=== PATIENT | female | born 1975 | race Caucasian/White ===

== ENCOUNTER 2016-09-16 04:34 | Emergency (ER) | payer BC, OTHER ==
[~2016-09-16] VITALS: Ht 162.6 cm; Wt 99.0 kg
[~2016-09-16 04:34] MED LIST: ALBU1AER9 INH; ATOR-24 PO; CETI10TA84 PO; CITA40TA4 PO; EPP3/2 IM; GLC/500 PO; MULT-506 PO
[2016-09-16 04:35] VITALS: TEMP 36.4; Ht 162.6 cm; Wt 99.0 kg
[2016-09-16] MEDS ORDERED: TPM25 PO (05:58)
[2016-09-16 06:07] VITALS: BP 125/84; PULSE 71; O2SAT 97
--- NOTE | 2016-09-16 08:20 | DIAGNOSTIC IMAGING REPORT ---
LEFT ANKLE MIN 3 VIEWS ROUTINE, LEFT FOOT MIN 3 VIEWS ROUTINE CLINICAL HISTORY: left foot/ankle injury COMPARISON STUDY: None. FINDINGS: Plantar and posterior calcaneal spurs. No fracture or dislocation. Soft tissues unremarkable. The Lisfranc joint and ankle mortise are maintained. IMPRESSION: No fracture or dislocation within the left ankle or left foot. Electronically signed by: Julio Connell M.D. 09/16/2016 8:19 AM Dictated Date/Time: 09/16/2016 8:16 AM
--- NOTE | 2016-09-17 03:22 | EMERGENCY ROOM VISIT NOTE ---
History First contact with patient: 04:40 Chief Complaint: FOOT PAIN Stated Complaint: EPI PEN STUCK IN RT FOOT,RT FOOT INJURY-WORK History of Present Illness The patient is a 40 year old female who presents to the Emergency Room with complaints of right ankle injury and foreign body of her left foot. 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 The patient has been having persistent pain in the superior aspect of the left foot and the lateral aspect of the left ankle. The patient has been able to ambulate despite her injury. On her way to work this morning she stopped in the emergency department parking lot, and was considering checking into the ER due to her symptoms. The patient reports that she has allergies to several foods, and felt like she might be reacting to something that she had eaten yesterday. The patient decided to take out her EpiPen, however it was dark outside, and she dropped it. The patient was not wearing a shoe on her left foot because of her foot pain, and used her foot to identify the location of the EpiPen. When she found the EpiPen she presses against the side of the door, causing it to discharge into her foot. The patient is now unable to remove the EpiPen from her foot, as it appears the needle is now stuck. The patient rates her overall discomfort a 9/10. She has full sensation of her foot. She is without additional complaints. Her tetanus is reportedly up-to-date Review of Systems More than 10 systems were reviewed and otherwise negative with the exception of history of present illness. Past Medical/Surgical History Medical Problems: (1) Asthma, Unspecified (2) Chronic Cholecystitis (3) Pure Hypercholesterolem Family History No significant family history Social History Smoking Status: Never Smoker Drug Use: none Occupation Status: employed Current/Historical Medications Scheduled Atorvastatin (Lipitor), 40 MG PO HS Cetirizine (Zyrtec), 10 MG PO QAM Citalopram (Citalopram Hydrobromide), 40 MG PO QAM Metformin Hcl (Glucophage), 500 MG PO BIDM Multivitamin (Multivitamin), 1 TAB PO QAM Topiramate (Topiramate), 25 MG PO BID Scheduled PRN Epinephrine (Epipen), 0.3 MG IM UD PRN for ALLERGIC REACTION Allergies Coded Allergies: Prednisone (Verified Allergy, Intermediate, RASH, 4/3/17) Amitriptyline (Verified Allergy, Unknown, ? HIVES AND RASH, 09/16/16) Iodinated Diagnostic Agents (Verified Allergy, Unknown, SHORTNESS OF BREATH, 09/16/16) Rofecoxib (Verified Allergy, Unknown, 09/16/16) Shellfish (Verified Allergy, Unknown, ANAPHYLAXIS, 09/16/16) Sumatriptan (Verified Allergy, Unknown, LOCK JAW, 09/16/16) Morphine (Verified Adverse Reaction, Intermediate, SEVERE NAUSEA, 09/16/16) Physical Exam Vital Signs Date Time Temp Pulse Resp B/P Pulse Ox O2 Delivery O2 Flow Rate FiO2 09/16/16 06:07 71 18 125/84 97 Room Air 09/16/16 04:35 36.4 90 20 152/102 97 Room Air Pain Rating (0-10): 2.0 Physical Exam VITALS: Vitals are noted on the nurse's note and reviewed by myself. Vital signs stable. GENERAL: Well-developed, well-nourished, white female who is in moderate discomfort secondary to her stated complaint. HEAD: Normocephalic atraumatic. HEART: Regular rate and rhythm without murmurs gallops or rubs. LUNGS: Clear to auscultation bilaterally without wheezes, rales or rhonchi. No retractions or accessory muscle use. MUSCULOSKELETAL: The foot is with foreign body underneath the first MTP joint on the plantar aspect. This is an EpiPen that appears to have discharged and the needle is now stuck in the soft tissue. The foot is with full neurovascular status. Pulses are intact throughout. There is no significant bleed. There is mild tenderness over the left lateral malleolus with slight palpable edema. No anterior mortise tenderness. No tenderness of the superior aspect of the foot. Patient has full sensation and range of motion of the toes. NEURO: Patient was alert and oriented to person place and time. CN II through XII grossly intact. Medical Decision & Procedures ER Provider Diagnostic Interpretation: LEFT ANKLE MIN 3 VIEWS ROUTINE, LEFT FOOT MIN 3 VIEWS ROUTINE CLINICAL HISTORY: left foot/ankle injury COMPARISON STUDY: None. FINDINGS: Plantar and posterior calcaneal spurs. No fracture or dislocation. Soft tissues unremarkable. The Lisfranc joint and ankle mortise are maintained. IMPRESSION: No fracture or dislocation within the left ankle or left foot. ED Course Physical exam and history were performed. Nursing notes and EMR were reviewed. Patient appears to have ankle pain from an injury yesterday as well as foreign body of her foot. Utilizing forceps I was able to manipulate the EpiPen from her foot without complication. The end of the needle appears to have a pigtail shape, presumably from hitting bone at the time of discharge. This is likely what caused the EpiPen to remain as a foreign body. X-rays were obtained of the foot and ankle and do not show evidence of acute fracture, dislocation, or foreign body. I discussed options for care with the patient. She has a preference to go home , and this appears reasonable provided that she have close follow-up regarding her foot. She did inject epinephrine into her foot accidentally. She did not strike the toes, and over the course of about 90 minutes did not have any worsening of her discomfort. She did feel better after removal of the EpiPen. She does not appear to have any necrotic tissue or vascular compromise. The patient should have a recheck in a few hours of her foot. I recommend that she follow closely with her primary care physician or return to the ER for this. The patient should otherwise follow with Workmen's Compensation regarding her injury from work. She was otherwise invited back to the ER with any new, worsening, or concerning symptoms. The chart was completed utilizing [employer] Speech Voice Recognition Software. Grammatical errors, random word insertions, pronoun errors, and incomplete sentences are an occasional consequence of this system due to software limitations, ambient noise, and hardware issues. Any formal questions or concerns about the content, text, or information contained within the body of this dictation should be directly addressed to the provider for clarification. . Medical Decision Differential diagnosis includes, but is not limited to: Sprain, strain, fracture , dislocation, subluxation, contusion, foreign-body, epinephrine injection, and others Impression Primary Impression: Left ankle pain Additional Impressions: Accidental injection of epinephrine Puncture wound of left foot without foreign body Departure Information Dispostion Home / Self-Care Condition GOOD Forms HOME CARE DOCUMENTATION FORM, IMPORTANT VISIT INFORMATION Patient Instructions [facility] Additional Instructions You were seen and evaluated today on an emergency basis only. This is not a substitute for, or an effort to provide, complete comprehensive medical care. It is not possible to recognize and treat all injuries or illnesses in a single emergency department visit. For this reason it is recommended that you followup with Workmen's Compensation this week regarding your ankle injury. We recommend following up later today with your primary care physician for reevaluation of your left foot after the injection of epinephrine. If you are not able to be seen today by your primary care physician we recommend return to the ER. You are welcome to return to the emergency department anytime with new, worsening, or concerning symptoms. Problem Qualifiers
== END 2016-09-16 06:10 | disposition home or self-care (01) ==
LOC: C.EDB 04:35 → C.EDA 06:10
DX: S91.332A Puncture wound without foreign body, left foot, initial encounter (principal); X58.XXXA Exposure to other specified factors, initial encounter; T44.5X1A Poisoning by predominantly beta-adrenoreceptor agonists, accidental (unintentional), initial encounter; M25.572 Pain in left ankle and joints of left foot; E78.00 Pure hypercholesterolemia, unspecified; J45.909 Unspecified asthma, uncomplicated; Z79.84 Long term (current) use of oral hypoglycemic drugs; Z79.899 Other long term (current) drug therapy; Z88.5 Allergy status to narcotic agent; Z88.8 Allergy status to other drugs, medicaments and biological substances; Z91.018 Allergy to other foods; Z91.041 Radiographic dye allergy status

== ENCOUNTER 2016-10-17 10:44 | Inpatient (IN) | payer BC, OTHER ==
[~2016-10-17] VITALS: Ht 162.6 cm; Wt 100.7 kg
[~2016-10-17 10:44] MED LIST changes: -ALBU1AER9 INH; +TPM25 PO
[2016-10-17] MEDS ORDERED: BUSP-8 PO (11:42)
[2016-10-17 12:20] LABS: HEMATOCRIT 42.7 % (37-47); MEAN CELL VOLUME 90.9 fL (80-100); MEAN CORPUSCULAR HEMOGLOBIN 30.4 pg (25-34); MEAN CORPUSCULAR HGB CONC 33.5 g/dl (32-36); MEAN PLATELET VOLUME 10.3 fL (7.4-10.4); PLATELET COUNT 206 K/uL (130-400); WHITE BLOOD COUNT 6.65 K/uL (4.8-10.8)
[2016-10-17 12:42] LABS: ALT/SGPT 68 U/L (12-78); BLOOD UREA NITROGEN 20 mg/dl (7-18); BUN/CREATININE RATIO 23.8 (10-20); CARBON DIOXIDE 27 mmol/L (21-32); CHLORIDE 105 mmol/L (98-107); CREATININE 0.84 mg/dl (0.60-1.20); GLUCOSE 90 mg/dl (70-99); POTASSIUM 4.2 mmol/L (3.5-5.1); SODIUM 140 mmol/L (136-145)
[2016-10-17 12:49] LABS: ACETAMINOPHEN < 2 ug/ml (10-30)
[2016-10-17 12:52] LABS: ALKALINE PHOSPHATASE 86 U/L (45-117); AST/SGOT 27 U/L (15-37)
[2016-10-17 13:00] LABS: BENZODIAZEPINE, URINE NEG (NEG); COCAINE,URINE NEG (NEG); PHENCYCLIDINE, URINE NEG (NEG)
[2016-10-17 13:31] LABS: CALCIUM 9.3 mg/dl (8.5-10.1)
[2016-10-17] MEDS ORDERED: MAGN400T6 PO (13:34)
[2016-10-17 14:28] VITALS: O2SAT 98
[2016-10-17] MEDS ORDERED: hydrOXYzine HCL 25 MG TAB PO PRN (14:45)
[2016-10-17] MEDS ORDERED: BISMUTH SUBSALICYLATE PER ML OMNICELL CHARGE PO PRN (14:45)
[2016-10-17] MEDS ORDERED: SODIUM CHLORIDE 0.65% NA SOLN 45 ML (OCEAN) PRN (14:45)
[2016-10-17] MEDS ORDERED: MAGNESIUM HYDROXIDE SUSP 30 ML UDC PO PRN (14:45)
[2016-10-17] MEDS ORDERED: ALUMINUM/MAGNESIUM SUSP 30 ML UDC PO PRN (14:45)
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
[2016-10-17 15:53] VITALS: BP 130/78; PULSE 74; TEMP 36.7; BMI 38.1
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
[2016-10-17] MEDS: METFORMIN HCL 500 MG TAB PO SCH (17:29)
[2016-10-17] MEDS: ACETAMINOPHEN 325 MG TAB PO PRN (19:05)
[2016-10-17] MEDS: TOPIRAMATE 25 MG TAB PO SCH (21:14)
[2016-10-18] MEDS: ACETAMINOPHEN 325 MG TAB PO PRN (07:01)
[2016-10-18 07:08] VITALS: BP_SYST 103; BP_SYST 118; BP_DIAS 71; BP_DIAS 81; PULSE 69; PULSE 84; TEMP 36.5
[2016-10-18 07:13] VITALS: Ht 162.6 cm; Wt 100.7 kg
[2016-10-18] MEDS: MAGNESIUM OXIDE 400 MG TAB PO SCH (08:57)
[2016-10-18] MEDS: TOPIRAMATE 25 MG TAB PO SCH ×2 (08:58→21:32)
[2016-10-18] MEDS: MULTIVITAMIN TAB PO SCH (08:58)
[2016-10-18] MEDS: CETIRIZINE HCL 10 MG TAB PO SCH (08:58)
[2016-10-18] MEDS: METFORMIN HCL 500 MG TAB PO SCH ×2 (08:58→17:22)
[2016-10-18] MEDS ORDERED: SERTRALINE HCL 50 MG TAB PO SCH (09:00)
[2016-10-18] MEDS ORDERED: CITALOPRAM 20 MG TAB PO SCH (09:00)
[2016-10-18 09:48] VITALS: BP 139/82; PULSE 80
[2016-10-18] MEDS ORDERED: NURSING VERBAL MED ORDER ONE (10:00)
[2016-10-18] MEDS ORDERED: LORAZEPAM 1 MG TAB PO ONE (10:30)
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
[2016-10-19 07:04] VITALS: BP 128/82; PULSE 76; PULSE 88; TEMP 36.8
[2016-10-19] MEDS: METFORMIN HCL 500 MG TAB PO SCH ×2 (08:06→17:22)
[2016-10-19] MEDS: TOPIRAMATE 25 MG TAB PO SCH ×2 (08:06→21:37)
[2016-10-19] MEDS: CETIRIZINE HCL 10 MG TAB PO SCH (08:06)
[2016-10-19] MEDS: MULTIVITAMIN TAB PO SCH (08:06)
[2016-10-19] MEDS: MAGNESIUM OXIDE 400 MG TAB PO SCH (08:06)
[2016-10-19] MEDS: ACETAMINOPHEN 325 MG TAB PO PRN ×2 (08:07→17:42)
[2016-10-19] MEDS ORDERED: SERTRALINE HCL 100 MG TAB PO SCH (09:00)
--- NOTE | 2016-10-19 09:57 | Psych Management Progress Note ---
Psychiatry Miscellaneous Date of Service: October 19, 2016. Patient seen, MS assessed. Did not participate in community meeting. Appears tired, told staff she wasn't feeling well but denies specific complaints at this time. Will review care and treatment plan outlined by LEONIDAS.
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
[2016-10-19] MEDS: hydrOXYzine HCL 25 MG TAB PO PRN (20:48)
[2016-10-20 06:54] VITALS: BP_SYST 120; BP_SYST 121; BP_DIAS 80; BP_DIAS 81; PULSE 68; PULSE 83; TEMP 36.6
[2016-10-20] MEDS: METFORMIN HCL 500 MG TAB PO SCH ×2 (08:54→17:45)
[2016-10-20] MEDS: MAGNESIUM OXIDE 400 MG TAB PO SCH (08:54)
[2016-10-20] MEDS: MULTIVITAMIN TAB PO SCH (08:55)
[2016-10-20] MEDS: TOPIRAMATE 25 MG TAB PO SCH ×2 (08:55→21:10)
[2016-10-20] MEDS: CETIRIZINE HCL 10 MG TAB PO SCH (08:55)
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
[2016-10-20 10:41] VITALS: BP 108/74; PULSE 76
[2016-10-20] MEDS: ACETAMINOPHEN 325 MG TAB PO PRN (10:43)
[2016-10-20] MEDS ORDERED: SERTRALINE HCL 100 MG TAB PO SCH (22:00)
[2016-10-21 07:01] VITALS: BP_SYST 117; BP_SYST 126; BP_DIAS 81; BP_DIAS 84; PULSE 71; PULSE 84; TEMP 36.5
[2016-10-21] MEDS: MAGNESIUM OXIDE 400 MG TAB PO SCH (08:47)
[2016-10-21] MEDS: MULTIVITAMIN TAB PO SCH (08:47)
[2016-10-21] MEDS: METFORMIN HCL 500 MG TAB PO SCH (08:47)
[2016-10-21] MEDS: TOPIRAMATE 25 MG TAB PO SCH (08:47)
[2016-10-21] MEDS: CETIRIZINE HCL 10 MG TAB PO SCH (08:47)
[2016-10-21] MEDS ORDERED: SERT1TAB92 PO (10:49)
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
[2016-10-21] MEDS: hydrOXYzine HCL 25 MG TAB PO PRN (11:37)
== END 2016-10-21 14:10 | disposition home or self-care (01) | DRG 885 ==
LOC: C.EDB 10:47 → C.MHU 14:43
PROVIDERS: ADMIT Psychiatry & Neurology Child & Adolescent Psychiatry; ATTEND Psychiatry & Neurology Child & Adolescent Psychiatry
DX: F32.2 Major depressive disorder, single episode, severe without psychotic features (principal); R45.851 Suicidal ideations; G43.009 Migraine without aura, not intractable, without status migrainosus; F41.9 Anxiety disorder, unspecified; E66.9 Obesity, unspecified; J45.909 Unspecified asthma, uncomplicated; E88.81 Metabolic syndrome and other insulin resistance; Z68.38 Body mass index [BMI] 38.0-38.9, adult; Z79.899 Other long term (current) drug therapy; Z79.84 Long term (current) use of oral hypoglycemic drugs

== ENCOUNTER 2016-11-05 13:40 | Inpatient (IN) | payer BC, OTHER ==
[~2016-11-05] VITALS: Ht 162.6 cm; Wt 97.9 kg
[2016-11-05] VITALS (10 sets, daily range): BP systolic 102–149; BP diastolic 57–98; PULSE 76–89; TEMP 36.3–36.5; O2SAT 97–100; Ht 162.6 cm; Wt 97.9 kg
[~2016-11-05 13:40] MED LIST changes: -ATOR-24 PO; +BUSP-8 PO; -CITA40TA4 PO; +MAGN400T6 PO; +SERT1TAB92 PO
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
[2016-11-05 14:41] LABS: BASO % 0.4 %; BASO ABS # 0.02 K/uL (0-0.2); COMPLETE YES; EOS % 2.8 %; HEMATOCRIT 41.1 % (37-47); IG% 0.4 %; LYMPH % 31.9 %; MEAN CELL VOLUME 90.5 fL (80-100); MEAN CORPUSCULAR HEMOGLOBIN 29.3 pg (25-34); MEAN CORPUSCULAR HGB CONC 32.4 g/dl (32-36); MONO % 4.4 %; NEUT % 60.1 %; PLATELET COUNT 207 K/uL (130-400); RED BLOOD COUNT 4.54 M/uL (4.2-5.4); WHITE BLOOD COUNT 5.65 K/uL (4.8-10.8)
[2016-11-05 14:44] LABS: BLOOD UREA NITROGEN 11 mg/dl (7-18); CALCIUM 8.7 mg/dl (8.5-10.1); CARBON DIOXIDE 27 mmol/L (21-32); CHLORIDE 110 mmol/L (98-107); GLUCOSE 92 mg/dl (70-99); POTASSIUM 3.6 mmol/L (3.5-5.1); SODIUM 144 mmol/L (136-145)
[2016-11-05 15:04] LABS: ACETAMINOPHEN < 2 ug/ml (10-30)
[2016-11-05 15:09] LABS: ALKALINE PHOSPHATASE 89 U/L (45-117); ALT/SGPT 104 U/L (12-78); AST/SGOT 48 U/L (15-37); BUN/CREATININE RATIO 12.3 (10-20); CREATININE 0.88 mg/dl (0.60-1.20)
[2016-11-05] MEDS ORDERED: LPT40 PO (15:31)
[2016-11-05] MEDS ORDERED: KLN5X PO (15:31)
[2016-11-05] MEDS ORDERED: CITA40TA4 PO (15:31)
[2016-11-05] MEDS ORDERED: BUPR100T8 PO (15:31)
[2016-11-05] MEDS ORDERED: PRZ1 PO (15:31)
[2016-11-05] MEDS ORDERED: CLMTP5 PO (15:31)
[2016-11-05 15:36] LABS: PREG INTERNAL NEGATIVE QC NEG CLEAR BACKGROUND; PREG INTERNAL POSITIVE QC POS CONTROL LINE
[2016-11-05 16:01] LABS: BENZODIAZEPINE, URINE NEG (NEG); COCAINE,URINE NEG (NEG); PHENCYCLIDINE, URINE NEG (NEG)
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
[2016-11-05] MEDS ORDERED: MRLP17X PO (16:25)
[2016-11-05] MEDS ORDERED: DICY20TA35 PO (16:25)
[2016-11-05] MEDS ORDERED: ONDA4TAB46 PO (16:25)
[2016-11-05] MEDS ORDERED: MECL-91 PO (16:25)
[2016-11-05] MEDS ORDERED: PRVHFAIN INH (16:25)
[2016-11-05] MEDS ORDERED: TOPI25TA55 PO (16:25)
[2016-11-05] MEDS ORDERED: MULTTAB58 PO (16:25)
[2016-11-05] MEDS ORDERED: RIBOCAP PO (16:25)
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
--- NOTE | 2016-11-05 18:10 | EMERGENCY ROOM VISIT NOTE ---
ED Visit Note First contact with patient: 13:38 Resident Physician Supervision Note: I interviewed and examined the patient. Discussed with Dr. Driscoll and agree with findings and plan as documented in the note. I spoke with this patient independently and she admits to taking an overdose of her meds. She was quite sleepy on physical exam although she was protecting her airway normally. The patient remains hemolytically stable. She will be admitted to the ICU is a polysubstance overdose. She will certainly require inpatient psychiatric care following this medical admission. Documented By: Thao Walker
[2016-11-05 18:21] LABS: PROTHROMBIN TIME (PATIENT) 10.7 SECONDS (9.0-12.0)
[2016-11-05] MEDS ORDERED: MAGNESIUM SULFATE 1GM / D5W 1 GM in PREMIXED IN D5W 100 ML IV SCH (18:30)
[2016-11-05 18:38] LABS: CALCIUM 8.6 mg/dl (8.5-10.1); CREATININE 0.81 mg/dl (0.60-1.20); MAGNESIUM 2.7 mg/dl (1.8-2.4); POTASSIUM 3.6 mmol/L (3.5-5.1)
[2016-11-05 18:47] LABS: ALB/GLOB RATIO 1.3 (0.9-2); PHOSPHORUS 3.6 mg/dl (2.5-4.9)
[2016-11-05 19:02] LABS: VEN BLD GAS O2 SATURATION 91.6 %; VEN BLOOD GAS BASE EXCESS -2.7 mmol/L
--- NOTE | 2016-11-05 20:15 | Progress Note ---
Progress Note Date of Service November 05, 2016. Progress Note 20:10 Discussed the case with LEONID[facility] Psychiatry, who provided instructions on how to address issues overnight if patient were to leave. If patients makes attempt to leave without medical clearance, [facility] Arrangements can be made with security services to try and have patient remain in hospital until the warrant is issued. Call psych liaison nurse with any questions. Once medically cleared, patient will be assessed and evaluated for mental health admission. Psychiatry/Mental health will come to assess patient in the morning.
[2016-11-05] MEDS: SODIUM CHLOR 0.45% + 20MEQ KCL 1,000 ML IV SCH (20:29)
[2016-11-05] MEDS: ENOXAPARIN 40 MG/0.4 ML SYR SQ SCH (20:30)
[2016-11-06] VITALS (12 sets, daily range): BP systolic 105–135; BP diastolic 64–95; PULSE 80–95; TEMP 36.5–36.9; O2SAT 94–98
[2016-11-06] MEDS: SODIUM CHLOR 0.45% + 20MEQ KCL 1,000 ML IV SCH (04:57)
[2016-11-06 06:01] LABS: BASO % 0.3 %; BASO ABS # 0.02 K/uL (0-0.2); COMPLETE YES; EOS % 1.8 %; HEMATOCRIT 40.7 % (37-47); IG% 0.3 %; LYMPH % 20.8 %; LYMPH ABS # 1.24 K/uL (1.2-3.4); MEAN CELL VOLUME 91.9 fL (80-100); MEAN CORPUSCULAR HEMOGLOBIN 29.6 pg (25-34); MEAN CORPUSCULAR HGB CONC 32.2 g/dl (32-36); MEAN PLATELET VOLUME 9.6 fL (7.4-10.4); MONO % 4.7 %; NEUT % 72.1 %; PLATELET COUNT 205 K/uL (130-400); RED BLOOD COUNT 4.43 M/uL (4.2-5.4); WHITE BLOOD COUNT 5.96 K/uL (4.8-10.8)
[2016-11-06 06:40] LABS: ALB/GLOB RATIO 1.2 (0.9-2); BUN/CREATININE RATIO 11.6 (10-20); CALCIUM 8.3 mg/dl (8.5-10.1); CREATININE 0.87 mg/dl (0.60-1.20); MAGNESIUM 2.3 mg/dl (1.8-2.4)
[2016-11-06 06:41] LABS: PHOSPHORUS 3.2 mg/dl (2.5-4.9)
[2016-11-06 07:24] LABS: VEN BLD GAS O2 SATURATION 79.6 %; VEN BLOOD GAS BASE EXCESS -4.5 mmol/L
[2016-11-06] MEDS ORDERED: PANTOprazole INJ 40 MG in SYRINGE 0 ML IV SCH (09:00)
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
--- NOTE | 2016-11-06 17:43 | Progress Note ---
Internal Med Progress Note Date of Service: November 06, 2016. Provider Documentation: SUBJECTIVE: patient is alert and awake says she heard bad news and wanted to be numb and took extra medications currently saying having headache and having vision problem no chest pain or sob or nausea afebrile hemodynamics stable OBJECTIVE: Vital Signs-as noted below Exam: General-alert and awake and oriented x 3 ENT-normal hearing Neck-no neck masses Lungs-cta b/l no wheezing or crackles Heart-s1 and s2 heard regular rate and rhythm no murmurs Abdomen-soft bowel sounds present non tender no distension Extremities- no edema present no erythema Neuro-alert and awake oriented x 3 moves extremities Lab data as noted below. ASSESSMENT & PLAN: MULTIPLE DRUG OVERDOSE intentional? hx of sucide atempt hemodynamics stable Qt prolongation improving iv fluids close monitor DEPRESSION seen by psychiatry ok to hod home meds for now plan for inpatient mental health unit when medically stable patient cannot sign out AMA INSULIN RESISTANCE Hold metformin during hospitalization On iss will monitor. ASTHMA stable HX DVT / VTE PROPHYLAXIS Lovenox SQ FULL CODE DISPOSITION monitor in ICU for now Vital Signs: Date Time Temp Pulse Resp B/P Pulse Ox O2 Delivery O2 Flow Rate FiO2 11/06/16 16:00 36.6 80 16 128/89 96 Room Air 11/06/16 16:00 96 Room Air 11/06/16 14:00 36.6 16 135/95 94 Room Air 11/06/16 12:00 36.8 18 120/65 95 Room Air 11/06/16 12:00 Room Air 11/06/16 10:01 36.7 95 17 105/64 95 Room Air 11/06/16 08:00 Room Air 11/06/16 07:45 95 Room Air 11/06/16 07:45 36.7 95 17 128/68 95 Room Air 11/06/16 06:00 82 17 111/70 95 11/06/16 04:01 36.8 82 14 115/72 94 11/06/16 04:00 Room Air 11/06/16 02:00 87 17 125/67 98 11/06/16 00:01 36.9 89 13 130/83 98 11/06/16 00:01 36.5 89 13 130/83 98 Nasal Cannula 2.0 11/05/16 23:59 Nasal Cannula 2.0 11/05/16 22:00 88 13 102/60 98 11/05/16 21:00 83 19 114/57 98 11/05/16 20:00 76 25 102/81 100 11/05/16 20:00 Nasal Cannula 2.0 11/05/16 19:00 36.5 81 23 121/73 100 Nasal Cannula 2.0 11/05/16 18:04 89 24 119/87 97 11/05/16 18:00 87 24 98 Nasal Cannula 2.0 Lab Results: Results Past 24 Hours Test 11/05/16 17:53 11/05/16 18:41 11/05/16 23:23 11/06/16 05:49 Range/Units Prothrombin Time 10.7 9.0-12.0 SECONDS Prothromb Time International Ratio 1.0 0.9-1.1 Activated Partial Thromboplast Time 27.1 21.0-31.0 SECONDS Partial Thromboplastin Ratio 1.0 Sodium Level 145 143 136-145 mmol/L Potassium Level 3.6 4.0 3.5-5.1 mmol/L Chloride Level 112 112 98-107 mmol/L Carbon Dioxide Level 27 25 21-32 mmol/L Anion Gap 6.0 6.0 3-11 mmol/L Blood Urea Nitrogen 11 10 7-18 mg/dl Creatinine 0.81 0.87 0.60-1.20 mg/dl Est Creatinine Clear Calc Drug Dose 101.8 94.8 ml/min Estimated GFR () 103.1 94.6 Estimated GFR (Non- 89.0 81.6 BUN/Creatinine Ratio 13.0 11.6 10-20 Random Glucose 96 96 70-99 mg/dl Osmolality 290 280-300 mOsm/kg Lactic Acid Level 1.2 0.4-2.0 mmol/L Calcium Level 8.6 8.3 8.5-10.1 mg/dl Phosphorus Level 3.6 3.2 2.5-4.9 mg/dl Magnesium Level 2.7 2.3 1.8-2.4 mg/dl Total Bilirubin 0.3 0.2 0.2-1 mg/dl Aspartate Amino Transf (AST/SGOT) 49 43 15-37 U/L Alanine Aminotransferase (ALT/SGPT) 102 102 12-78 U/L Alkaline Phosphatase 88 84 45-117 U/L Total Protein 6.9 6.9 6.4-8.2 gm/dl Albumin 3.9 3.7 3.4-5.0 gm/dl Globulin 3.0 3.2 2.5-4.0 gm/dl Albumin/Globulin Ratio 1.3 1.2 0.9-2 Venous Blood pH 7.30 7.36-7.41 Venous Blood Partial Pressure CO2 50 38.0-50.0 mmHg Venous Blood Partial Pressure O2 70 mmHg Venous Blood HCO3 24 mmol/L Venous Blood Oxygen Saturation 91.6 % Venous Blood Base Excess -2.7 mmol/L Bedside Glucose 97 70-90 mg/dl White Blood Count 5.96 4.8-10.8 K/uL Red Blood Count 4.43 4.2-5.4 M/uL Hemoglobin 13.1 12.0-16.0 g/dL Hematocrit 40.7 37-47 % Mean Corpuscular Volume 91.9 80-100 fL Mean Corpuscular Hemoglobin 29.6 25-34 pg Mean Corpuscular Hemoglobin Concent 32.2 32-36 g/dl Platelet Count 205 130-400 K/uL Mean Platelet Volume 9.6 7.4-10.4 fL Neutrophils (%) (Auto) 72.1 % Lymphocytes (%) (Auto) 20.8 % Monocytes (%) (Auto) 4.7 % Eosinophils (%) (Auto) 1.8 % Basophils (%) (Auto) 0.3 % Neutrophils # (Auto) 4.29 1.4-6.5 K/uL Lymphocytes # (Auto) 1.24 1.2-3.4 K/uL Monocytes # (Auto) 0.28 0.11-0.59 K/uL Eosinophils # (Auto) 0.11 0-0.5 K/uL Basophils # (Auto) 0.02 0-0.2 K/uL RDW Standard Deviation 47.6 36.4-46.3 fL RDW Coefficient of Variation 14.1 11.5-14.5 % Immature Granulocyte % (Auto) 0.3 % Immature Granulocyte # (Auto) 0.02 0.00-0.02 K/uL Test 11/06/16 07:10 11/06/16 08:55 Range/Units Venous Blood pH 7.34 7.36-7.41 Venous Blood Partial Pressure CO2 39 38.0-50.0 mmHg Venous Blood Partial Pressure O2 47 mmHg Venous Blood HCO3 21 mmol/L Venous Blood Oxygen Saturation 79.6 % Venous Blood Base Excess -4.5 mmol/L Hepatitis B Surface Antigen NEG NEG Hepatitis C Antibody NEG NEG
--- NOTE | 2016-11-06 18:59 | Critical Care Progress Note ---
Critical Care Progress Note Date of Service November 06, 2016. ICU Day ICU Day Number: [address] Dobson Subjective Patient states she does not recall any of the events of admission Recalls having a meeting with her boss about her filing a complaint for harassment against a co-worker and was notified that the complaint would not be investigated any further States that she was very upset by this and took 2 handfulls of medications. Was unable to specify which medications she took. Declines to answer whether she was intending to harm herself or commit suicide at the time. Declines to answer whether she has any remorse/regret of doing that. Denies any other complaints at this time. No issues overnight. Objective Constitutional: Vital signs as above were reviewed. Eyes: Pupils equal, round, and reactive to light. Extraocular muscles are intact. No proptosis. No photophobia. ENT: Mucous membranes are moist. Oropharynx is clear. No sinus tenderness. TMs are clear bilaterally. Cardiovascular: Heart with a regular rate and rhythm. Pulses are palpable and symmetric in all 4 extremities. No pedal edema appreciated. Respiratory: Lungs clear to auscultation bilaterally. No wheezes, rales, or rhonchi appreciated. No accessory muscle use. No retractions. No increased work of breathing. GI: Abdomen soft, nontender, nondistended. Normal active bowel sounds. No abdominal hernias appreciated. No rebound. No guarding. : No CVA tenderness appreciated. Musculoskeletal: No midline cervical or vertebral tenderness. No gross deformities. No bony tenderness. No calf swelling or tenderness. Integumentary: Warm, dry, no rashes appreciated. Neurological: Patient awake, alert, and oriented x 3. Cranial nerves two through 12 grossly intact. Motor 5 out of 5 strength bilateral upper and lower extremities. Lymph: No cervical lymphadenopathy appreciated. Psych: Depressed affect, slow monotonous, guarded with answering questions, tearful Current SOFA Score SOFA Score Response (Comments) Value Platelets (x10) > 150 0 Bilirubin (mg/dL) < 1.2 0 [place] Coma Score 15 0 Level of Hypotension No Hypotension 0 Creatinine (mg/dL) < 1.2 0 Total 0 Assessment & Plan (1) Antidepressant overdose (2) Drug overdose, multiple drugs (3) Migraine (4) Insulin resistance (5) At high risk for suicide NEUROLOGICAL - GCS: 14 - Sedation: None Sedated 2/2 to drug intoxication History of Depression - Continue to hold all home meds Attempted Suicide by Antidepressant Ingestion - Mental Health Consulted; recommendations appreciated - Patient has expressed desire to be voluntarily admitted for treatment once medically cleared CARDIOVASCULAR - Hemodynamically stable; Goal MAP > 65 - Vasopressor support: None - IV Fluids: None Risk for Prolonged QTc - Monitor on telemetry - EKG this morning: QTc improved to 481 from 499 - Repeat EKG in now and in AM RESPIRATORY - > 95% on room air; no respiratory distress - Continue to monitor GASTROINTESTINAL - Diet: Resume regular diet No metal utensils Safetray due to acute suicide risk - GI Prophylaxis: Eating PO, discontinue Protonix RENAL//ENDOCRINE Acute Polypharmacy Overdose - Normal anion gap - Normals serum osmolarity - Normal Lactate - Electrolytes normal Insulin Resistance - Montor BSG q 6 hours - Sliding Scale Novolog HEMATOLOGY/INFECTIOUS DISEASE - Afebrile WBC: 5 - DVT Prophylaxis: Lovenox 40 mg sc qAM CODE STATUS - Full Code DISPOSITION - OT/PT: Not indicated at this time - ICU for monitoring as QTc is still prolonged and requires further monitoring - Disposition once medically cleared uncertain at this time; mental health is following, form 302 is in the chart Resident Physician Supervision Note: Dr. Wiley was resident physician during care of patient. I separately evaluated patient and did history and exam. I discussed the case with the resident and generally agree with the findings and plan. Moderate improvement in mental status, however he QTc still prolonged and at risk for seizures will continue ICU monitoring at this time likely will be able to downgraded tomorrow Documented By: Eulalio Dobson DO Consults & Procedures Consultants: Mental Health/Psychiatry Procedures: - Data Medications: Current Inpatient Medications Medications (Trade) Dose Ordered Sig/Khloe Route Start Time Stop Time Status Last Admin Dose Admin Enoxaparin Sodium (Lovenox Inj) 40 mg Q24H SQ 11/05/16 21:00 12/05/16 20:59 11/05/16 20:30 40 MG I & O: 24-Hour Column 11/06/16 08:00 Intake Total 926 ml Output Total 600 ml Balance 326 ml Vital Signs: Date Time Temp Pulse Resp B/P Pulse Ox O2 Delivery O2 Flow Rate FiO2 11/06/16 16:00 36.6 80 16 128/89 96 Room Air 11/06/16 16:00 96 Room Air 11/06/16 14:00 36.6 16 135/95 94 Room Air 11/06/16 12:00 36.8 18 120/65 95 Room Air 11/06/16 12:00 Room Air 11/06/16 10:01 36.7 95 17 105/64 95 Room Air 11/06/16 08:00 Room Air 11/06/16 07:45 95 Room Air 11/06/16 07:45 36.7 95 17 128/68 95 Room Air 11/06/16 06:00 82 17 111/70 95 11/06/16 04:01 36.8 82 14 115/72 94 11/06/16 04:00 Room Air 11/06/16 02:00 87 17 125/67 98 11/06/16 00:01 36.9 89 13 130/83 98 11/06/16 00:01 36.5 89 13 130/83 98 Nasal Cannula 2.0 11/05/16 23:59 Nasal Cannula 2.0 11/05/16 22:00 88 13 102/60 98 11/05/16 21:00 83 19 114/57 98 11/05/16 20:00 76 25 102/81 100 11/05/16 20:00 Nasal Cannula 2.0 11/05/16 19:00 36.5 81 23 121/73 100 Nasal Cannula 2.0 11/05/16 18:04 89 24 119/87 97 11/05/16 18:00 87 24 98 Nasal Cannula 2.0 11/05/16 17:36 36.3 83 14 115/68 98 11/05/16 17:30 84 26 99 11/05/16 17:00 80 14 98 Nasal Cannula 2.0 11/05/16 16:59 98 Nasal Cannula 2.0 Laboratory Results: Last 24 Hours Test 11/05/16 17:53 11/05/16 18:41 11/05/16 23:23 11/06/16 05:49 Prothrombin Time 10.7 SECONDS Prothromb Time International Ratio 1.0 Activated Partial Thromboplast Time 27.1 SECONDS Partial Thromboplastin Ratio 1.0 Sodium Level 145 mmol/L 143 mmol/L Potassium Level 3.6 mmol/L 4.0 mmol/L Chloride Level 112 mmol/L 112 mmol/L Carbon Dioxide Level 27 mmol/L 25 mmol/L Anion Gap 6.0 mmol/L 6.0 mmol/L Blood Urea Nitrogen 11 mg/dl 10 mg/dl Creatinine 0.81 mg/dl 0.87 mg/dl Est Creatinine Clear Calc Drug Dose 101.8 ml/min 94.8 ml/min Estimated GFR () 103.1 94.6 Estimated GFR (Non- 89.0 81.6 BUN/Creatinine Ratio 13.0 11.6 Random Glucose 96 mg/dl 96 mg/dl Osmolality 290 mOsm/kg Lactic Acid Level 1.2 mmol/L Calcium Level 8.6 mg/dl 8.3 mg/dl Phosphorus Level 3.6 mg/dl 3.2 mg/dl Magnesium Level 2.7 mg/dl 2.3 mg/dl Total Bilirubin 0.3 mg/dl 0.2 mg/dl Aspartate Amino Transf (AST/SGOT) 49 U/L 43 U/L Alanine Aminotransferase (ALT/SGPT) 102 U/L 102 U/L Alkaline Phosphatase 88 U/L 84 U/L Total Protein 6.9 gm/dl 6.9 gm/dl Albumin 3.9 gm/dl 3.7 gm/dl Globulin 3.0 gm/dl 3.2 gm/dl Albumin/Globulin Ratio 1.3 1.2 Venous Blood pH 7.30 Venous Blood Partial Pressure CO2 50 mmHg Venous Blood Partial Pressure O2 70 mmHg Venous Blood HCO3 24 mmol/L Venous Blood Oxygen Saturation 91.6 % Venous Blood Base Excess -2.7 mmol/L Bedside Glucose 97 mg/dl White Blood Count 5.96 K/uL Red Blood Count 4.43 M/uL Hemoglobin 13.1 g/dL Hematocrit 40.7 % Mean Corpuscular Volume 91.9 fL Mean Corpuscular Hemoglobin 29.6 pg Mean Corpuscular Hemoglobin Concent 32.2 g/dl Platelet Count 205 K/uL Mean Platelet Volume 9.6 fL Neutrophils (%) (Auto) 72.1 % Lymphocytes (%) (Auto) 20.8 % Monocytes (%) (Auto) 4.7 % Eosinophils (%) (Auto) 1.8 % Basophils (%) (Auto) 0.3 % Neutrophils # (Auto) 4.29 K/uL Lymphocytes # (Auto) 1.24 K/uL Monocytes # (Auto) 0.28 K/uL Eosinophils # (Auto) 0.11 K/uL Basophils # (Auto) 0.02 K/uL RDW Standard Deviation 47.6 fL RDW Coefficient of Variation 14.1 % Immature Granulocyte % (Auto) 0.3 % Immature Granulocyte # (Auto) 0.02 K/uL Test 11/06/16 07:10 11/06/16 08:55 Venous Blood pH 7.34 Venous Blood Partial Pressure CO2 39 mmHg Venous Blood Partial Pressure O2 47 mmHg Venous Blood HCO3 21 mmol/L Venous Blood Oxygen Saturation 79.6 % Venous Blood Base Excess -4.5 mmol/L Hepatitis B Surface Antigen NEG Hepatitis C Antibody NEG Problem Qualifiers (1) Drug overdose, multiple drugs: Encounter type: initial encounter Injury intent: intentional self-harm Qualified Codes: T50.902A - Poisoning by unspecified drugs, medicaments and biological substances, intentional self-harm, initial encounter
[2016-11-06] MEDS ORDERED: GLUCOSE 40% GEL 15 GM TUBE PO PRN (19:15)
[2016-11-06] MEDS ORDERED: GLUCOSE 10 TABS/TUBE PO PRN (19:15)
[2016-11-06] MEDS ORDERED: DEXTROSE 50% 50 ML SYR IV PRN (19:15)
[2016-11-06] MEDS ORDERED: GLUCAGON FOR INJ 1 MG VIAL SQ PRN (19:15)
[2016-11-06] MEDS: ENOXAPARIN 40 MG/0.4 ML SYR SQ SCH (20:51)
[2016-11-06] MEDS: INSULIN ASPART 100 UNITS/ML 3 ML PEN SC SCH (20:52)
[2016-11-07] VITALS (9 sets, daily range): BP systolic 97–132; BP diastolic 55–79; PULSE 78–85; TEMP 36.6–36.7; O2SAT 94–95
[2016-11-07 05:44] LABS: HEMATOCRIT 40.4 % (37-47); MEAN CELL VOLUME 93.1 fL (80-100); MEAN CORPUSCULAR HEMOGLOBIN 30.6 pg (25-34); MEAN CORPUSCULAR HGB CONC 32.9 g/dl (32-36); MEAN PLATELET VOLUME 9.7 fL (7.4-10.4); PLATELET COUNT 197 K/uL (130-400); RED BLOOD COUNT 4.34 M/uL (4.2-5.4); WHITE BLOOD COUNT 5.69 K/uL (4.8-10.8)
[2016-11-07 06:13] LABS: ALB/GLOB RATIO 1.2 (0.9-2); BUN/CREATININE RATIO 10.4 (10-20); CALCIUM 8.3 mg/dl (8.5-10.1); CREATININE 0.88 mg/dl (0.60-1.20); MAGNESIUM 2.1 mg/dl (1.8-2.4); POTASSIUM 3.6 mmol/L (3.5-5.1)
[2016-11-07] MEDS: POTASSIUM CHLORIDE 10 MEQ TABCR PO STA ×2 (06:16→06:25)
[2016-11-07 06:19] LABS: PHOSPHORUS 2.4 mg/dl (2.5-4.9)
[2016-11-07] MEDS: INSULIN ASPART 100 UNITS/ML 3 ML PEN SC SCH ×2 (06:23→11:00)
[2016-11-07] MEDS ORDERED: POTASSIUM CHLORIDE 20 MEQ TABCR PO SCH (06:45)
--- NOTE | 2016-11-07 10:15 | Critical Care Progress Note ---
Critical Care Progress Note Date of Service November 07, 2016. ICU Day ICU Day Number: [address] Dobson Subjective Slept well No complaints at this time States she feels slightly lightheaded when sitting up Able to eat, no nausea or vomiting No complaints of pain Objective Constitutional: Vital signs as above were reviewed. Eyes: Pupils equal, round, and reactive to light. Extraocular muscles are intact. No proptosis. No photophobia. ENT: Mucous membranes are moist. Oropharynx is clear. No sinus tenderness. TMs are clear bilaterally. Cardiovascular: Heart with a regular rate and rhythm. Pulses are palpable and symmetric in all 4 extremities. No pedal edema appreciated. Respiratory: Lungs clear to auscultation bilaterally. No wheezes, rales, or rhonchi appreciated. No accessory muscle use. No retractions. No increased work of breathing. GI: Abdomen soft, nontender, nondistended. Normal active bowel sounds. No abdominal hernias appreciated. No rebound. No guarding. : No CVA tenderness appreciated. Musculoskeletal: No midline cervical or vertebral tenderness. No gross deformities. No bony tenderness. No calf swelling or tenderness. Integumentary: Warm, dry, no rashes appreciated. Neurological: Patient awake, alert, and oriented x 3. Cranial nerves two through 12 grossly intact. Motor 5 out of 5 strength bilateral upper and lower extremities. Lymph: No cervical lymphadenopathy appreciated. Psych: Depressed affect, slow monotonous, guarded with answering questions, tearful Current SOFA Score SOFA Score Response (Comments) Value Platelets (x10) > 150 0 Bilirubin (mg/dL) < 1.2 0 [place] Coma Score 15 0 Level of Hypotension No Hypotension 0 Creatinine (mg/dL) < 1.2 0 Total 0 Previous SOFA Scores NEUROLOGICAL - GCS: 15; alert and oriented x 3; RASS 0 History of Depression - Continue to hold all home meds Attempted Suicide by Antidepressant Ingestion - Mental Health recommendations appreciated - Form 302 in the chart CARDIOVASCULAR - Hemodynamically stable; Goal MAP > 65 - Vasopressor support: None - IV Fluids: None Risk for Prolonged QTc - QTc improved today to 457; down from 476 yesterda - Resolved; can discontinue cardiac monitoring at this time RESPIRATORY - > 95% on room air; no respiratory distress - Continue to monitor GASTROINTESTINAL - Diet: Resume regular diet No metal utensils Safetray due to acute suicide risk - GI Prophylaxis: Not indicated RENAL//ENDOCRINE Acute Polypharmacy Overdose - Normal anion gap; Normals serum osmolarity; Normal Lactate - Stable - Electrolytes normal Insulin Resistance - BSG 80-90s; AC/HS checks - Montor BSG q 6 hours - Sliding Scale Novolog HEMATOLOGY/INFECTIOUS DISEASE - Afebrile WBC: stable at 5 - DVT Prophylaxis: Lovenox 40 mg sc qAM CODE STATUS - Full Code DISPOSITION - Medically stable to be transferred directly to mental health - Completion of form 302 per Mental Health Assessment & Plan (1) Antidepressant overdose (2) Drug overdose, multiple drugs (3) Migraine (4) Insulin resistance (5) At high risk for suicide NEUROLOGICAL - GCS: 14 - Sedation: None Sedated 2/2 to drug intoxication History of Depression - Continue to hold all home meds Attempted Suicide by Antidepressant Ingestion - Mental Health Consulted; recommendations appreciated - Patient has expressed desire to be voluntarily admitted for treatment once medically cleared CARDIOVASCULAR - Hemodynamically stable; Goal MAP > 65 - Vasopressor support: None - IV Fluids: None Risk for Prolonged QTc - Monitor on telemetry - EKG this morning: QTc improved to 481 from 499 - Repeat EKG in now and in AM RESPIRATORY - > 95% on room air; no respiratory distress - Continue to monitor GASTROINTESTINAL - Diet: Resume regular diet No metal utensils Safetray due to acute suicide risk - GI Prophylaxis: Eating PO, discontinue Protonix RENAL//ENDOCRINE Acute Polypharmacy Overdose - Normal anion gap - Normals serum osmolarity - Normal Lactate - Electrolytes normal Insulin Resistance - Montor BSG q 6 hours - Sliding Scale Novolog HEMATOLOGY/INFECTIOUS DISEASE - Afebrile WBC: 5 - DVT Prophylaxis: Lovenox 40 mg sc qAM CODE STATUS - Full Code DISPOSITION - OT/PT: Not indicated at this time - ICU for monitoring as QTc is still prolonged and requires further monitoring - Disposition once medically cleared uncertain at this time; mental health is following, form 302 is in the chart Resident Physician Supervision Note: Dr. Wiley was resident physician during care of patient. I separately evaluated patient and did history and exam. I discussed the case with the resident and generally agree with the findings and plan. QTC has decreased to below 450 now medically stable. I have signed the formal 201 and she'll be transferred for further mental health evaluation and management. Documented By: Eulalio Dobson DO Consults & Procedures Consultants: Mental Health/Psychiatry Procedures: - Data Medications: Current Inpatient Medications Medications (Trade) Dose Ordered Sig/Khloe Route Start Time Stop Time Status Last Admin Dose Admin Enoxaparin Sodium (Lovenox Inj) 40 mg Q24H SQ 11/05/16 21:00 12/05/16 20:59 11/06/16 20:51 40 MG Insulin Aspart (novoLOG ASPART) SLIDING SCALE G... ACHS SC 11/06/16 21:00 12/06/16 20:59 Glucose (Glucose 40% Gel) 15-30 GRAMS 15 GRAMS... UD PRN PO 11/06/16 19:15 12/06/16 19:14 Glucose (Glucose Chew Tab) 4-8 Tablets 4 Tabl... UD PRN PO 11/06/16 19:15 12/06/16 19:14 Dextrose (Dextrose 50% 50ML Syringe) 25-50ML OF 50% DW IV FOR... UD PRN IV 11/06/16 19:15 12/06/16 19:14 Glucagon (Glucagon Inj) 1 mg UD PRN SQ 11/06/16 19:15 12/06/16 19:14 I & O: 24-Hour Column 11/07/16 08:00 Intake Total 394 ml Balance 394 ml Vital Signs: Date Time Temp Pulse Resp B/P Pulse Ox O2 Delivery O2 Flow Rate FiO2 11/07/16 08:00 36.7 78 16 97/55 95 Room Air 11/07/16 06:10 79 16 98/79 95 Room Air 11/07/16 04:03 36.6 84 16 114/66 95 Room Air 11/07/16 04:02 Room Air 11/07/16 02:00 85 16 108/70 95 Room Air 11/07/16 00:01 Room Air 11/07/16 00:00 36.6 85 16 132/72 95 Room Air 11/06/16 22:04 89 16 118/64 94 Room Air 11/06/16 20:00 Room Air 11/06/16 20:00 36.7 88 16 111/71 96 Room Air 11/06/16 18:00 94 16 94 Room Air 11/06/16 16:00 36.6 80 16 128/89 96 Room Air 11/06/16 16:00 96 Room Air 11/06/16 14:00 36.6 16 135/95 94 Room Air 11/06/16 12:00 36.8 18 120/65 95 Room Air 11/06/16 12:00 Room Air Laboratory Results: Last 24 Hours Test 11/06/16 20:50 11/07/16 05:30 11/07/16 06:21 Bedside Glucose 80 mg/dl 93 mg/dl White Blood Count 5.69 K/uL Red Blood Count 4.34 M/uL Hemoglobin 13.3 g/dL Hematocrit 40.4 % Mean Corpuscular Volume 93.1 fL Mean Corpuscular Hemoglobin 30.6 pg Mean Corpuscular Hemoglobin Concent 32.9 g/dl RDW Standard Deviation 48.8 fL RDW Coefficient of Variation 14.4 % Platelet Count 197 K/uL Mean Platelet Volume 9.7 fL Sodium Level 143 mmol/L Potassium Level 3.6 mmol/L Chloride Level 113 mmol/L Carbon Dioxide Level 23 mmol/L Anion Gap 7.0 mmol/L Blood Urea Nitrogen 9 mg/dl Creatinine 0.88 mg/dl Est Creatinine Clear Calc Drug Dose 93.7 ml/min Estimated GFR () 93.3 Estimated GFR (Non- 80.5 BUN/Creatinine Ratio 10.4 Random Glucose 90 mg/dl Calcium Level 8.3 mg/dl Phosphorus Level 2.4 mg/dl Magnesium Level 2.1 mg/dl Total Bilirubin 0.4 mg/dl Aspartate Amino Transf (AST/SGOT) 40 U/L Alanine Aminotransferase (ALT/SGPT) 104 U/L Alkaline Phosphatase 86 U/L Total Protein 6.9 gm/dl Albumin 3.8 gm/dl Globulin 3.1 gm/dl Albumin/Globulin Ratio 1.2 Problem Qualifiers (1) Drug overdose, multiple drugs: Encounter type: initial encounter Injury intent: intentional self-harm Qualified Codes: T50.902A - Poisoning by unspecified drugs, medicaments and biological substances, intentional self-harm, initial encounter
--- NOTE | 2016-11-07 12:51 | Discharge Instructions ---
Discharge Instructions Date of Service November 07, 2016. Admission Reason for Admission: Drug Overdose, Multiple Drugs Discharge Discharge Diagnosis / Problem: Poly drug overdose, suicideal ideation Discharge Goals Goal(s): Decrease discomfort Activity Recommendations Activity Level: Up Ad Viridiana . Additional Information Patient informed of condition: Yes Advance Directives: Yes DNR: No Level of Care: Other (acute mental health care) Communicable Disease: No Prognosis: Stable Sood Catheter: No Instructions / Follow-Up Instructions / Follow-Up FOLLOWUP RECOMMENDED. PSYCHIATRY MEDICATIONS RESTART PER PSYCHIATRY Current Hospital Diet Patient's current hospital diet: Regular Diet Discharge Diet Recommended Diet: Regular Diet Pending Studies Studies pending at discharge: no Physician Orders On Transfer Special Precautions: SUICIDAL WATCH Vital Signs: EVERY 8HRS Medical Emergencies . Who to Call and When: Medical Emergencies: If at any time you feel your situation is an emergency, please call 911 immediately. . Non-Emergent Contact Non-Emergency issues call your: Primary Care Provider . . "Provider Documentation" section prepared by Jaime Bae. . Core Measure Problem Core Measures: None
--- NOTE | 2016-11-07 19:25 | Progress Note ---
Internal Med Progress Note Date of Service: November 07, 2016. Provider Documentation: SUBJECTIVE: ALERT AND AWAKE and oriented RESTING COMFORTABLY HEMODYNAMICALLY STABLE NO CHEST PAIN OR SOB' HAS SOME HEADACHES OBJECTIVE: Vital Signs-as noted below Exam: General-alert and awake and oriented x 3 ENT-normal hearing Neck-no neck masses Lungs-cta b/l no wheezing or crackles Heart-s1 and s2 heard regular rate and rhythm no murmurs Abdomen-soft bowel sounds present non tender no distension Extremities- no edema present no erythema Neuro-alert and awake oriented x 3 moves extremities Lab data as noted below. ASSESSMENT & PLAN: MULTIPLE DRUG OVERDOSE intentional? hx of suicide attempt hemodynamics stable Qt prolongation resolved stable now discharged to inpatient psychiatry hospital DEPRESSION seen by psychiatry ok to hod home meds for now plan for inpatient mental health unit when medically stable patient cannot sign out AMA discharged to inpatient psychiatry hospital INSULIN RESISTANCE Hold metformin during hospitalization On iss d/c on home meds ASTHMA stable discharged to Inpatient psychiatry hospital Vital Signs: Date Time Temp Pulse Resp B/P Pulse Ox O2 Delivery O2 Flow Rate FiO2 11/07/16 14:00 36.6 83 16 112/56 95 Room Air 11/07/16 13:31 36.6 80 16 95 Room Air 11/07/16 12:00 36.6 80 16 101/68 95 Room Air 11/07/16 12:00 Room Air 11/07/16 10:00 81 16 102/74 94 Room Air 11/07/16 08:00 36.7 78 16 97/55 95 Room Air 11/07/16 08:00 Room Air 11/07/16 06:10 79 16 98/79 95 Room Air 11/07/16 04:03 36.6 84 16 114/66 95 Room Air 11/07/16 04:02 Room Air 11/07/16 02:00 85 16 108/70 95 Room Air 11/07/16 00:01 Room Air 11/07/16 00:00 36.6 85 16 132/72 95 Room Air 11/06/16 22:04 89 16 118/64 94 Room Air 11/06/16 20:00 Room Air 11/06/16 20:00 36.7 88 16 111/71 96 Room Air Lab Results: Results Past 24 Hours Test 11/06/16 20:50 11/07/16 05:30 11/07/16 06:21 11/07/16 11:05 Range/Units Bedside Glucose 80 93 101 70-90 mg/dl White Blood Count 5.69 4.8-10.8 K/uL Red Blood Count 4.34 4.2-5.4 M/uL Hemoglobin 13.3 12.0-16.0 g/dL Hematocrit 40.4 37-47 % Mean Corpuscular Volume 93.1 80-100 fL Mean Corpuscular Hemoglobin 30.6 25-34 pg Mean Corpuscular Hemoglobin Concent 32.9 32-36 g/dl RDW Standard Deviation 48.8 36.4-46.3 fL RDW Coefficient of Variation 14.4 11.5-14.5 % Platelet Count 197 130-400 K/uL Mean Platelet Volume 9.7 7.4-10.4 fL Sodium Level 143 136-145 mmol/L Potassium Level 3.6 3.5-5.1 mmol/L Chloride Level 113 98-107 mmol/L Carbon Dioxide Level 23 21-32 mmol/L Anion Gap 7.0 3-11 mmol/L Blood Urea Nitrogen 9 7-18 mg/dl Creatinine 0.88 0.60-1.20 mg/dl Est Creatinine Clear Calc Drug Dose 93.7 ml/min Estimated GFR () 93.3 Estimated GFR (Non- 80.5 BUN/Creatinine Ratio 10.4 10-20 Random Glucose 90 70-99 mg/dl Calcium Level 8.3 8.5-10.1 mg/dl Phosphorus Level 2.4 2.5-4.9 mg/dl Magnesium Level 2.1 1.8-2.4 mg/dl Total Bilirubin 0.4 0.2-1 mg/dl Aspartate Amino Transf (AST/SGOT) 40 15-37 U/L Alanine Aminotransferase (ALT/SGPT) 104 12-78 U/L Alkaline Phosphatase 86 45-117 U/L Total Protein 6.9 6.4-8.2 gm/dl Albumin 3.8 3.4-5.0 gm/dl Globulin 3.1 2.5-4.0 gm/dl Albumin/Globulin Ratio 1.2 0.9-2
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
== END 2016-11-07 15:00 | DRG 918 ==
LOC: ENRESERVDT → ENRESERVTM → EDBD 13:40 → C.EDA 13:41 → C.MSICU 15:53
PROVIDERS: ADMIT Hospitalist; ATTEND Internal Medicine
DX: T43.202A Poisoning by unspecified antidepressants, intentional self-harm, initial encounter (principal); F33.2 Major depressive disorder, recurrent severe without psychotic features; E88.81 Metabolic syndrome and other insulin resistance; Z79.84 Long term (current) use of oral hypoglycemic drugs; Z79.899 Other long term (current) drug therapy; J45.909 Unspecified asthma, uncomplicated